=== PATIENT | female | born 1945 | race Caucasian/White ===

== ENCOUNTER 2016-06-15 04:34 | Emergency (ER) | payer MEDICARE, MEDICAID ==
[~2016-06-15] VITALS: Ht 157.5 cm; Wt 77.1 kg
[~2016-06-15 04:34] MED LIST: AMLO10TA80 PO; AMOX500T2 PO; ATEN100T PO; HYDR25TA PO; LOSA100T14 PO; METF850T2 PO; [UNRECOGNIZED DRUG - OTHER]; [UNRECOGNIZED DRUG - OTHER]
[2016-06-15] MEDS ORDERED: SODIUM CHLORIDE 0.9% 1,000 ML IV ONE (08:48)
[2016-06-15 09:06] LABS: CLARITY URINE CLEAR (CLEAR); COLOR URINE YELLOW (YELLOW); GLUCOSE URINE NEGATIVE (NEGATIVE); KETONES URINE NEGATIVE (NEGATIVE); LEUKOCYTE ESTERASE URINE 3+ (NEGATIVE); NITRITE URINE NEGATIVE (NEGATIVE); OCCULT BLOOD URINE NEGATIVE (NEGATIVE); PH URINE 6.5 (4.5-8.0); PROTEIN URINE NEGATIVE (NEGATIVE); SPECIFIC GRAVITY URINE 1.005 (1.005-1.030); UROBILINOGEN URINE 0.2 E.U./dL (0.2-1.0)
[2016-06-15 09:28] LABS: BASOPHILS % 0.5 % (0.0-2.0); EOSINOPHILS % 0.6 % (0.0-5.0); HEMOGLOBIN. 13.3 g/dL (12.0-16.0); MEAN CORPUSCULAR HEMOGLOBIN 31.1 pg (28.0-32.0); MEAN CORPUSCULAR VOLUME 89.1 fL (81.0-99.0); MEAN PLATELET VOLUME 9.6 fl (7.4-10.4); MONOCYTES % 5.2 % (2.0-8.0); NEUTROPHILS % 52.7 % (40.0-76.0); PLATELET 223 x1000/uL (130-400); RED BLOOD CELL COUNT 4.27 mill/uL (4.2-5.4); RED CELL DISTRIBUTION WIDTH 12.4 % (11.6-14.6); WHITE BLOOD COUNT 9.9 x1000/uL (4.5-11.0)
[2016-06-15 09:32] LABS: PROTHROMBIN TIME 10.7 sec
[2016-06-15 09:39] LABS: ALANINE AMINOTRANSFERASE 33 IU/L (13-61); ALBUMIN 3.8 g/dL (3.4-5.0); ANION GAP 14; CALCIUM 9.2 mg/dL (8.5-10.1); CARBON DIOXIDE 26 mEq/L (21-32); CHLORIDE 95 mEq/L (98-107); ETHANOL BLOOD < 10 mg/dL; INDEX HEMOLYSI 1 (1-3); INDEX ICTERIC 1 (1-4); INDEX LIPEMIC 1 (1-3); LIPASE 209 IU/L (73-393); TROPONIN I < 0.02 ng/mL (0.00-0.04); UREA NITROGEN BLOOD 9 mg/dL (7-21); eGFR > 60 mL/min (>60)
[2016-06-15 09:41] LABS: BACTERIA URINE 1+; RBC URINE NONE SEEN /hpf (0-2); SQUAMOUS EPITHELIAL CELL URINE FEW /lpf (RARE/1+)
[2016-06-15 09:51] LABS: *AMPHETAMINES SCREEN URINE NEGATIVE (NEGATIVE); *BARBITURATES SCREEN URINE NEGATIVE (NEGATIVE); *BENZODIAZEPINES SCREEN URINE NEGATIVE (NEGATIVE); *COCAINE SCREEN URINE NEGATIVE (NEGATIVE); CANNABINOID URINE SCREEN NEGATIVE (NEGATIVE); ECSTASY MDMA SCREEN URINE NEGATIVE (NEGATIVE); METHADONE URINE SCREEN NEGATIVE (NEGATIVE); OPIATES URINE SCREEN NEGATIVE (NEGATIVE); PHENCYCLIDINE URINE SCREEN NEGATIVE (NEGATIVE)
[2016-06-15 16:51] VITALS: BP 135/63
[2016-07-05] MEDS ORDERED: SERT50TA PO (05:40)
[2016-07-05] MEDS ORDERED: ASPI-1035 PO (10:48)
== END 2016-06-15 17:16 | disposition home or self-care (01) ==
LOC: ER 07:44
DX: N39.0 Urinary tract infection, site not specified (principal); I10 Essential (primary) hypertension; E11.9 Type 2 diabetes mellitus without complications; F41.9 Anxiety disorder, unspecified; Z88.0 Allergy status to penicillin
CPT/HCPCS: 36415; 70450; 71010; 74176; 80053; 80305; 81001; 83605; 83690; 84443; 84484; 85025; 85610; 93005; 99285; G0482; J7030

== ENCOUNTER 2016-12-19 19:29 | Emergency (ER) | payer MEDICARE, MEDICAID ==
[~2016-12-19] VITALS: Ht 165.1 cm; Wt 81.0 kg
[~2016-12-19 19:29] MED LIST changes: +ASPI-1159 PO; +SERT50TA PO
[2016-12-20] MEDS ORDERED: FAMOTIDINE 20MG/2ML VIAL IV STA (01:24)
[2016-12-20] MEDS ORDERED: ONDANSETRON 4MG ODT PO STA (01:24)
[2016-12-20] MEDS ORDERED: MAGNESIUM/ALUMINUM HYDROXIDE/SIMETHICONE 30ML UDC PO STA (01:24)
[2016-12-20] MEDS ORDERED: SODIUM CHLORIDE 0.9% 1,000 ML IV ONE (01:24)
[2016-12-20] MEDS ORDERED: ONDANSETRON HCL 4MG/2ML VIAL IV STA (01:24)
[2016-12-20 01:32] LABS: CLARITY URINE TURBID (CLEAR); COLOR URINE DARK YELLOW (YELLOW); GLUCOSE URINE NEGATIVE (NEGATIVE); KETONES URINE TRACE (NEGATIVE); LEUKOCYTE ESTERASE URINE 3+ (NEGATIVE); NITRITE URINE NEGATIVE (NEGATIVE); OCCULT BLOOD URINE 2+ (NEGATIVE); PH URINE 5.5 (4.5-8.0); PROTEIN URINE 2+ (NEGATIVE); SPECIFIC GRAVITY URINE 1.027 (1.005-1.030)
[2016-12-20 01:54] LABS: BASOPHILS % 0.6 % (0.0-2.0); HEMATOCRIT. 31.3 % (36.0-48.0); HEMOGLOBIN. 10.8 g/dL (12.0-16.0); LYMPHOCYTES % 16.5 % (20.0-50.0); MEAN CORPUSCULAR HEMOGLOBIN 30.7 pg (28.0-32.0); MEAN CORPUSCULAR VOLUME 88.5 fL (81.0-99.0); MEAN PLATELET VOLUME 9.3 fl (7.4-10.4); MONOCYTES % 9.1 % (2.0-8.0); NEUTROPHILS % 72.8 % (40.0-76.0); PLATELET 203 x1000/uL (130-400); RED BLOOD CELL COUNT 3.54 mill/uL (4.2-5.4); RED CELL DISTRIBUTION WIDTH 12.7 % (11.6-14.6)
[2016-12-20 01:56] LABS: CHLORIDE 99 mEq/L (98-107)
[2016-12-20 01:57] LABS: INR 1.1
[2016-12-20 02:04] LABS: CARBON DIOXIDE 26 mEq/L (21-32)
[2016-12-20 04:10] VITALS: BP 126/51
== END 2016-12-20 04:23 | disposition home or self-care (01) ==
LOC: ER 19:29
DX: N39.0 Urinary tract infection, site not specified (principal); R63.0 Anorexia; I10 Essential (primary) hypertension; E11.9 Type 2 diabetes mellitus without complications; Z88.0 Allergy status to penicillin; Z79.82 Long term (current) use of aspirin
CPT/HCPCS: 36415; 80053; 81001; 83690; 85025; 85610; 96361; 96374; 96375; 99284; J2405; J3490; J7030

== ENCOUNTER → 2017-03-03 | Outpatient (CLI) | payer MEDICARE, MEDICAID ==
[~2017-03-03] MED LIST changes: +REGADENOSON 0.4 MG/5 ML IV ONE
== END | disposition home or self-care (01) ==
LOC: NM 07:23
PROVIDERS: ATTEND Internal Medicine Geriatric Medicine
DX: Z01.818 Encounter for other preprocedural examination (principal); I10 Essential (primary) hypertension; E11.9 Type 2 diabetes mellitus without complications; R07.9 Chest pain, unspecified
CPT/HCPCS: 78452; 93017; A9500; J2785

== ENCOUNTER 2019-05-04 09:04 | Emergency (ER) | payer MEDICARE, MEDICAID ==
[~2019-05-04] VITALS: Ht 165.1 cm; Wt 198.0 kg
[~2019-05-04 09:04] MED LIST changes: -AMOX500T2 PO; -ASPI-1159 PO; +ASPI-1497 PO; +GLIM1TAB PO; -HYDR25TA PO; -LOSA100T14 PO; +LOSA1TAB37 PO; -METF850T2 PO; +OMEP20CA14 PO; -REGADENOSON 0.4 MG/5 ML IV ONE; -[UNRECOGNIZED DRUG - OTHER]; -[UNRECOGNIZED DRUG - OTHER]
[2019-05-04 09:45] VITALS: BP 133/68
== END 2019-05-04 12:08 | disposition home or self-care (01) ==
LOC: ER 09:04
DX: R05 Cough (principal); I10 Essential (primary) hypertension; E11.65 Type 2 diabetes mellitus with hyperglycemia; Z79.82 Long term (current) use of aspirin; Z88.0 Allergy status to penicillin
CPT/HCPCS: 71045; 82962; 99283

== ENCOUNTER 2019-05-06 23:43 | Emergency (ER) | payer MEDICARE, MEDICAID ==
[~2019-05-06] VITALS: Ht 157.5 cm; Wt 80.3 kg
[2019-05-07 07:28] VITALS: BP 172/72
[2019-05-07 07:48] LABS: EOSINOPHILS % 2.6 % (0.0-5.0); HEMOGLOBIN. 14.1 g/dL (12.0-16.0); LYMPHOCYTES % 34.9 % (20.0-50.0); MEAN CORPUSCULAR HEMOGLOBIN 30.9 pg (28.0-32.0); MONOCYTES % 7.7 % (2.0-8.0); NEUTROPHILS % 53.8 % (40.0-76.0); PLATELET 215 x1000/uL (130-400); RED BLOOD CELL COUNT 4.56 mill/uL (4.2-5.4); RED CELL DISTRIBUTION WIDTH 13.7 % (11.6-14.6)
[2019-05-07 08:00] LABS: CHLORIDE 101 mEq/L (98-107)
[2019-05-07 08:02] LABS: CLARITY URINE CLOUDY (CLEAR); COLOR URINE YELLOW (YELLOW); KETONES URINE 1+ (NEGATIVE); LEUKOCYTE ESTERASE URINE NEGATIVE (NEGATIVE); NITRITE URINE NEGATIVE (NEGATIVE); OCCULT BLOOD URINE NEGATIVE (NEGATIVE); PROTEIN URINE NEGATIVE (NEGATIVE); SPECIFIC GRAVITY URINE 1.021 (1.005-1.030); UROBILINOGEN URINE 0.2 E.U./dL (0.2-1.0)
== END 2019-05-07 10:37 | disposition home or self-care (01) ==
LOC: ER 23:43
DX: R53.1 Weakness (principal); E11.9 Type 2 diabetes mellitus without complications; F32.9 Major depressive disorder, single episode, unspecified; I10 Essential (primary) hypertension; Z90.710 Acquired absence of both cervix and uterus
CPT/HCPCS: 36415; 71045; 80053; 81003; 82962; 83880; 84484; 85025; 93005; 99284

== ENCOUNTER 2022-07-02 16:24 | Inpatient (IN) | payer MEDICARE, MEDICAID ==
[~2022-07-02] VITALS: Ht 152.4 cm; Wt 69.9 kg
[2022-07-02 17:09] LABS: BASOPHILS % 0.9 % (0.0-2.0); EOSINOPHILS % 1.4 % (0.0-5.0); HEMATOCRIT. 29.2 % (36.0-48.0); HEMOGLOBIN. 10.2 g/dL (12.0-16.0); LYMPHOCYTES % 31.8 % (20.0-50.0); MEAN CORPUSCULAR HEMOGLOBIN 30.9 pg (28.0-32.0); MEAN CORPUSCULAR VOLUME 88.8 fL (81.0-99.0); MEAN PLATELET VOLUME 8.3 fl (7.4-10.4); MONOCYTES % 6.1 % (2.0-8.0); NEUTROPHILS % 59.8 % (40.0-76.0); PLATELET 251 x1000/uL (130-400); RED BLOOD CELL COUNT 3.29 mill/uL (4.2-5.4); RED CELL DISTRIBUTION WIDTH 13.8 % (11.6-14.6)
[2022-07-02 17:17] LABS: CHLORIDE 104 mEq/L (98-107)
[2022-07-02 17:30] LABS: CLARITY URINE CLOUDY (CLEAR); COLOR URINE YELLOW (YELLOW); KETONES URINE NEGATIVE (NEGATIVE); LEUKOCYTE ESTERASE URINE 1+ (NEGATIVE); NITRITE URINE NEGATIVE (NEGATIVE); OCCULT BLOOD URINE 3+ (NEGATIVE); PH URINE 5.5 (4.5-8.0); PROTEIN URINE 3+ (NEGATIVE); SPECIFIC GRAVITY URINE 1.011 (1.005-1.030); UROBILINOGEN URINE 0.2 E.U./dL (0.2-1.0)
[2022-07-03] MEDS ORDERED: MAGNESIUM/ALUMINUM HYDROXIDE/SIMETHICONE 30ML UDC PO ONE (04:45)
[2022-07-03] MEDS ORDERED: SULFAMETHOXAZOLE/TRIMETHOPRIM 800/160MG TABLET PO ONE (04:45)
[2022-07-03] MEDS ORDERED: PANTOPRAZOLE SODIUM 40 MG/VIAL IV SCH (10:00)
[2022-07-03] MEDS ORDERED: IPRATROPIUM/ALBUTEROL 0.5-3(2.5)MG/3ML NEB HHN PRN (10:00)
[2022-07-03] MEDS ORDERED: GUAIFENESIN 200MG/10ML SUGAR FREE UDC PO PRN (10:00)
[2022-07-03] MEDS ORDERED: DEXTROSE 50% WATER 50ML SYRINGE IV PRN (10:00)
[2022-07-03] MEDS ORDERED: ACETAMINOPHEN 325MG TABLET PO PRN ×2 (10:00)
[2022-07-03] MEDS ORDERED: DOCUSATE SODIUM 100MG CAPSULE PO PRN (10:00)
[2022-07-03] MEDS ORDERED: HYDROCODONE/ACETAMINOPHEN 5/325MG TABLET PO PRN (10:00)
[2022-07-03] MEDS ORDERED: CLONIDINE 0.1MG TABLET PO PRN (10:00)
[2022-07-03] MEDS ORDERED: MAGNESIUM/ALUMINUM HYDROXIDE/SIMETHICONE 30ML UDC PO PRN (10:00)
[2022-07-03] MEDS ORDERED: ONDANSETRON HCL 4MG/2ML INJ IV PRN (10:00)
[2022-07-03] MEDS ORDERED: NALOXONE HCL 0.4MG/ML VIAL IV PRN (10:15)
[2022-07-03 10:30] LABS: BASOPHILS % 0.9 % (0.0-2.0); EOSINOPHILS % 0.6 % (0.0-5.0); HEMATOCRIT. 29.8 % (36.0-48.0); HEMOGLOBIN. 10.4 g/dL (12.0-16.0); LYMPHOCYTES % 20.3 % (20.0-50.0); MEAN CORPUSCULAR HEMOGLOBIN 30.5 pg (28.0-32.0); MEAN PLATELET VOLUME 8.4 fl (7.4-10.4); MONOCYTES % 7.7 % (2.0-8.0); NEUTROPHILS % 70.5 % (40.0-76.0); PLATELET 254 x1000/uL (130-400); RED BLOOD CELL COUNT 3.39 mill/uL (4.2-5.4); RED CELL DISTRIBUTION WIDTH 14.1 % (11.6-14.6)
[2022-07-03] MEDS ORDERED: LEVOFLOXACIN 500MG PREMIX 100 ML IV NR (11:00)
[2022-07-03 11:03] LABS: CHLORIDE 108 mEq/L (98-107)
[2022-07-03 11:11] LABS: PHOSPHORUS 3.7 mg/dL (2.5-4.9); TOTAL IRON BINDING CAPACITY 276 ug/dL (250-450)
[2022-07-03 11:59] LABS: FOLIC ACID (FOLATE) SERUM >20 ng/mL ng/mL (>5.38); VITAMIN B12 SERUM 954 pg/mL (211-911)
[2022-07-03] MEDS: SODIUM CHLORIDE 0.9% 1,000 ML IV SCH ×2 (13:14→20:37)
[2022-07-03] MEDS: BLOOD SUGAR DIAGNOSTIC STRIP TEST SCH ×2 (13:49→21:00)
[2022-07-03] MEDS: ENOXAPARIN 30MG/0.3ML SYR SUBCUT SCH (15:29)
[2022-07-03] MEDS: INSULIN LISPRO 100 UNITS/ML SUBCUT SCH ×2 (15:29→21:00)
[2022-07-03 17:00] VITALS: BP 125/56
[2022-07-03 19:44] LABS: CREATINE KINASE MB FRACTION 1.2 ng/mL (0.5-3.6)
[2022-07-03 20:00] VITALS: BP 169/62
[2022-07-03] MEDS: SUCRALFATE 1 G/10 ML UDC PO SCH (20:37)
[2022-07-03] MEDS: OMEPRAZOLE 20MG CAPSULE EXTENDED RELEASE PO SCH (20:38)
[2022-07-04] VITALS: BP 151/60
[2022-07-04 01:25] LABS: CREATINE KINASE MB FRACTION 1.2 ng/mL (0.5-3.6)
[2022-07-04 04:00] VITALS: BP 146/62
[2022-07-04 05:31] LABS: EOSINOPHILS % 2.1 % (0.0-5.0); HEMATOCRIT. 24.5 % (36.0-48.0); HEMOGLOBIN. 8.7 g/dL (12.0-16.0); LYMPHOCYTES % 33.2 % (20.0-50.0); MEAN CORPUSCULAR HEMOGLOBIN 31.3 pg (28.0-32.0); MEAN CORPUSCULAR VOLUME 88.1 fL (81.0-99.0); MEAN PLATELET VOLUME 8.9 fl (7.4-10.4); MONOCYTES % 7.7 % (2.0-8.0); PLATELET 215 x1000/uL (130-400); RED BLOOD CELL COUNT 2.78 mill/uL (4.2-5.4); RED CELL DISTRIBUTION WIDTH 13.6 % (11.6-14.6)
[2022-07-04] MEDS: SODIUM CHLORIDE 0.9% 1,000 ML IV SCH ×2 (05:45→16:39)
[2022-07-04] MEDS ORDERED: *PATIENT'S OWN MEDICATION STORAGE XX SCH (06:15)
[2022-07-04] MEDS: BLOOD SUGAR DIAGNOSTIC STRIP TEST SCH ×2 (06:53→12:59)
[2022-07-04] MEDS: SUCRALFATE 1 G/10 ML UDC PO SCH ×2 (06:56→13:17)
[2022-07-04] MEDS: OMEPRAZOLE 20MG CAPSULE EXTENDED RELEASE PO SCH (06:56)
[2022-07-04] MEDS: INSULIN LISPRO 100 UNITS/ML SUBCUT SCH ×2 (07:44→12:50)
[2022-07-04 07:48] LABS: CHLORIDE 109 mEq/L (98-107)
[2022-07-04 08:00] VITALS: BP 154/56
[2022-07-04 08:06] LABS: HDL CHOLESTEROL 35 mg/dL (40-59); LDL CHOLESTEROL 93 mg/dL (5-100)
[2022-07-04] MEDS ORDERED: LEVOFLOXACIN 250MG PREMIX 50ML IV SCH (11:00)
[2022-07-04 12:00] VITALS: BP 152/48
[2022-07-04] MEDS: ENOXAPARIN 30MG/0.3ML SYR SUBCUT SCH (12:59)
[2022-07-04] MEDS ORDERED: OMEP20CA14 PO (15:47)
[2022-07-04] MEDS ORDERED: SUCR1ORA15 PO (15:47)
[2022-07-04] MEDS ORDERED: LEVO750T68 PO (16:00)
== END 2022-07-04 17:45 | disposition home or self-care (01) | DRG 392 ==
LOC: ER 16:24 → 6EST 07-03 06:30
PROVIDERS: ADMIT Internal Medicine; ATTEND Internal Medicine
DX: K21.9 Gastro-esophageal reflux disease without esophagitis (principal); N39.0 Urinary tract infection, site not specified; N17.9 Acute kidney failure, unspecified; N18.9 Chronic kidney disease, unspecified; E11.22 Type 2 diabetes mellitus with diabetic chronic kidney disease; D63.1 Anemia in chronic kidney disease; I12.9 Hypertensive chronic kidney disease with stage 1 through stage 4 chronic kidney disease, or unspecified chronic kidney disease; Z90.710 Acquired absence of both cervix and uterus; Z79.4 Long term (current) use of insulin
CPT/HCPCS: 36415; 71045; 74176; 76700; 80053; 80061; 81003; 82378; 82550; 82553; 82607; 82746; 82962; 83036; 83540; 83550; 83735; 84100; 84439; 84443; 84484; 85025; 85044; 86677; 93005; 93970; 99285; C9113; J1650; J1956

== ENCOUNTER 2023-06-28 16:00 | Inpatient (IN) | payer MEDICARE, MEDICAID ==
[~2023-06-28] VITALS: Ht 152.4 cm; Wt 55.6 kg
[~2023-06-28 16:00] MED LIST changes: -AMLO10TA80 PO; -ASPI-1497 PO; -ATEN100T PO; +CELL2 PO; +DOCU250C14 PO; +EPOE10005 SUBCUT; +FAMO20TA8 PO; +FERR-63 PO; +HYDR100T26 PO; +LACT1CAP77 PO; +LEVO25TA7 PO; +LEVO75TA7 PO; -LOSA1TAB37 PO; +MINO2.5T19 PO; +NEPVIT PO; -OMEP20CA14 PO; +P20 PO; -SERT50TA PO
[2023-06-28 18:45] LABS: BASOPHILS % 0.2 % (0.0-2.0); EOSINOPHILS % 0.1 % (0.0-5.0); HEMOGLOBIN. 9.7 g/dL (12.0-16.0); LYMPHOCYTES % 10.5 % (20.0-50.0); MEAN CORPUSCULAR HEMOGLOBIN 31.4 pg (28.0-32.0); MEAN CORPUSCULAR HGB CONC 33.6 g/dL (31.0-37.0); MEAN CORPUSCULAR VOLUME 93.5 fL (81.0-99.0); MEAN PLATELET VOLUME 7.9 fl (7.4-10.4); MONOCYTES % 5.5 % (2.0-8.0); NEUTROPHILS % 83.7 % (40.0-76.0); PLATELET 318 x1000/uL (130-400); RED CELL DISTRIBUTION WIDTH 15.2 % (11.6-14.6); WHITE BLOOD COUNT 10.2 x1000/uL (4.5-11.0)
[2023-06-28 19:03] LABS: PROTHROMBIN TIME 11.4 sec (9.6-11.0)
[2023-06-28 19:12] LABS: ALANINE AMINOTRANSFERASE < 7 IU/L (10-49); ALBUMIN 3.8 g/dL (3.2-4.8); ASPARTATE AMINOTRANSFERASE 25 IU/L (<34); BILIRUBIN TOTAL 0.4 mg/dL (0.1-1.0); CALCIUM 9.3 mg/dL (8.7-10.4); CARBON DIOXIDE 24 mEq/L (21-32); CHLORIDE 99 mEq/L (98-107); CREATININE 2.6 mg/dL (0.6-1.0); GLUCOSE 100 mg/dL (70-105); POTASSIUM 4.4 mEq/L (3.5-5.1); SODIUM 130 mEq/L (136-145); TROPONIN I HIGH SENSITIVITY 22 ng/L (3.0-34); UREA NITROGEN BLOOD 21 mg/dL (9-23)
[2023-06-28] MEDS ORDERED: LEVOFLOXACIN 750MG PREMIX 150 ML IV ONE (23:30)
[2023-06-29] VITALS (8 sets, daily range): BP systolic 135–172; BP diastolic 56–88; PULSE 71–100; RESP 18–20; TEMP 97–98.2
[2023-06-29] MEDS: LEVOFLOXACIN 750MG PREMIX 150 ML IV NR (03:49)
[2023-06-29 04:17] LABS: CLARITY URINE CLOUDY (CLEAR); COLOR URINE DARK YELLOW (YELLOW); GLUCOSE URINE NEGATIVE (NEGATIVE); KETONES URINE TRACE (NEGATIVE); LEUKOCYTE ESTERASE URINE 1+ (NEGATIVE); NITRITE URINE NEGATIVE (NEGATIVE); OCCULT BLOOD URINE NEGATIVE (NEGATIVE); PH URINE 5.5 (4.5-8.0); PROTEIN URINE 4+ (NEGATIVE); SPECIFIC GRAVITY URINE 1.021 (1.005-1.030)
[2023-06-29 05:43] LABS: SQUAMOUS EPITHELIAL CELL URINE FEW /lpf (RARE/1+)
[2023-06-29 05:45] LABS: BACTERIA URINE NONE SEEN; RBC URINE 15-25 /hpf (0-2)
[2023-06-29] MEDS ORDERED: LEVOFLOXACIN 500MG PREMIX 100 ML IV SCH (10:00)
[2023-06-29] MEDS ORDERED: ONDANSETRON HCL 4MG/2ML INJ IV PRN (10:00)
[2023-06-29] MEDS: AMLODIPINE 10MG TABLET PO SCH (10:32)
[2023-06-29 13:12] LABS: HEPATITIS A AB IGM NEGATIVE (Negative); HEPATITIS B CORE AB IGM NEGATIVE (Negative); HEPATITIS B SURFACE ANTIGEN NEGATIVE (Negative); HEPATITIS C AB NON REACTIVE (Neg) (Negative)
[2023-06-29] MEDS: HYDRALAZINE HCL 100MG TABLET PO SCH (21:59)
[2023-06-29] MEDS: ENOXAPARIN 30MG/0.3ML SYR SUBCUT SCH (22:00)
[2023-06-29] MEDS: GUAIFENESIN-DM 200MG-20MG/10ML UDC PO PRN (22:24)
[2023-06-29] MEDS: ZOLPIDEM TARTRATE 5MG TABLET PO PRN (22:24)
[2023-06-30] VITALS (14 sets, daily range): BP systolic 132–196; BP diastolic 49–98; PULSE 65–105; RESP 13–26; TEMP 96.8–100.4
[2023-06-30 09:26] LABS: BASOPHILS % 0.2 % (0.0-2.0); EOSINOPHILS % 0.1 % (0.0-5.0); HEMATOCRIT. 25.6 % (36.0-48.0); HEMOGLOBIN. 8.5 g/dL (12.0-16.0); LYMPHOCYTES % 9.6 % (20.0-50.0); MEAN CORPUSCULAR HEMOGLOBIN 31.3 pg (28.0-32.0); MEAN CORPUSCULAR HGB CONC 33.4 g/dL (31.0-37.0); MEAN CORPUSCULAR VOLUME 93.8 fL (81.0-99.0); MEAN PLATELET VOLUME 8.6 fl (7.4-10.4); MONOCYTES % 4.6 % (2.0-8.0); NEUTROPHILS % 85.5 % (40.0-76.0); PLATELET 259 x1000/uL (130-400); RED BLOOD CELL COUNT 2.73 mill/uL (4.2-5.4); RED CELL DISTRIBUTION WIDTH 15.6 % (11.6-14.6); WHITE BLOOD COUNT 10.2 x1000/uL (4.5-11.0)
[2023-06-30] MEDS ORDERED: SODIUM CHLORIDE 10% FOR INH 15ML NEB INH NR (10:00)
[2023-06-30 10:57] LABS: FOLIC ACID (FOLATE) SERUM > 20.00 ng/mL (>5.38); VITAMIN B12 SERUM 435 pg/mL (211-911)
[2023-06-30] MEDS: MYCOPHENOLATE MOFETIL 500MG TABLET PO SCH (11:25)
[2023-06-30] MEDS: LEVOTHYROXINE SODIUM 75MCG TABLET PO NR (11:25)
[2023-06-30] MEDS: PREDNISONE 20MG TABLET PO SCH (11:26)
[2023-06-30 11:45] LABS: CALCIUM 7.3 mg/dL (8.7-10.4); CARBON DIOXIDE 18 mEq/L (21-32); CHLORIDE 107 mEq/L (98-107); CHOLESTEROL 142 mg/dL (<200); CREATININE 2.8 mg/dL (0.6-1.0); GLUCOSE 71 mg/dL (70-105); HDL CHOLESTEROL 51 mg/dL (>65); IRON 16 ug/dL (50-170); LDL CHOLESTEROL 53 mg/dL (5-100); POTASSIUM 3.9 mEq/L (3.5-5.1); SODIUM 135 mEq/L (136-145); T4 FREE 0.89 ng/dL (0.89-1.76); THYROID STIMULATING HORMONE 5.01 uIU/mL (0.55-4.78); TOTAL IRON BINDING CAPACITY 154 ug/dl (250-425); TRIGLYCERIDE 87 mg/dL (0-150); UREA NITROGEN BLOOD 33 mg/dL (9-23)
[2023-06-30] MEDS: ACETAMINOPHEN 325MG TABLET PO PRN (13:04)
[2023-06-30] MEDS: MONTELUKAST SODIUM 10MG TABLET PO SCH (16:16)
[2023-06-30] MEDS: VANCOMYCIN 1G PREMIX 200 ML IV ONE (17:23)
[2023-06-30] MEDS: GENTAMICIN SULFATE 80 MG in SODIUM CHLORIDE 0.9% 100 ML IV ONE (18:59)
[2023-06-30] MEDS: MIRTAZAPINE 15MG TABLET PO SCH (20:59)
[2023-07-01] VITALS: BP 129/53; PULSE 86; RESP 18; TEMP 97.2
[2023-07-01 04:00] VITALS: BP 149/61; PULSE 86; RESP 18; TEMP 97.9
[2023-07-01] MEDS: LEVOFLOXACIN 500 MG IV SCH (06:05)
[2023-07-01] MEDS: LEVOTHYROXINE SODIUM 75MCG TABLET PO SCH (06:05)
[2023-07-01 07:00] LABS: BASOPHILS % 0.1 % (0.0-2.0); LYMPHOCYTES % 10.8 % (20.0-50.0); MEAN CORPUSCULAR HEMOGLOBIN 31.2 pg (28.0-32.0); MEAN CORPUSCULAR HGB CONC 33.3 g/dL (31.0-37.0); MEAN CORPUSCULAR VOLUME 93.5 fL (81.0-99.0); MEAN PLATELET VOLUME 8.6 fl (7.4-10.4); NEUTROPHILS % 82.1 % (40.0-76.0); PLATELET 275 x1000/uL (130-400); RED BLOOD CELL COUNT 2.89 mill/uL (4.2-5.4); RED CELL DISTRIBUTION WIDTH 15.3 % (11.6-14.6); WHITE BLOOD COUNT 8.9 x1000/uL (4.5-11.0)
[2023-07-01 07:06] LABS: CALCIUM 8.9 mg/dL (8.7-10.4); POTASSIUM 4.6 mEq/L (3.5-5.1)
[2023-07-01 08:00] VITALS: BP 151/62; PULSE 85; RESP 13; TEMP 96.4
[2023-07-01] MEDS: FOLIC ACID/VITAMIN B COMP W-C TABLET PO SCH (08:49)
[2023-07-01 12:00] VITALS: BP_SYST 157; PULSE 89; RESP 20; TEMP 98.2
[2023-07-01 16:00] VITALS: BP 145/60; PULSE 84; RESP 16; TEMP 98
[2023-07-01] MEDS: FERROUS SULFATE 325MG TABLET PO SCH (16:25)
[2023-07-01 20:00] VITALS: BP 143/62; PULSE 85; RESP 18; TEMP 97.7
[2023-07-02] VITALS (11 sets, daily range): BP systolic 134–154; BP diastolic 54–81; PULSE 80–96; RESP 16–20; TEMP 96.6–98.8; O2SAT 98–99
[2023-07-02 06:44] LABS: EOSINOPHILS % 0.1 % (0.0-5.0); HEMATOCRIT. 26.9 % (36.0-48.0); HEMOGLOBIN. 9.1 g/dL (12.0-16.0); LYMPHOCYTES % 10.4 % (20.0-50.0); MEAN CORPUSCULAR HEMOGLOBIN 30.9 pg (28.0-32.0); MEAN CORPUSCULAR HGB CONC 33.7 g/dL (31.0-37.0); MEAN CORPUSCULAR VOLUME 91.7 fL (81.0-99.0); MEAN PLATELET VOLUME 8.5 fl (7.4-10.4); MONOCYTES % 6.7 % (2.0-8.0); NEUTROPHILS % 82.8 % (40.0-76.0); PLATELET 303 x1000/uL (130-400); RED BLOOD CELL COUNT 2.94 mill/uL (4.2-5.4); RED CELL DISTRIBUTION WIDTH 14.9 % (11.6-14.6); WHITE BLOOD COUNT 8.6 x1000/uL (4.5-11.0)
[2023-07-02 07:13] LABS: CALCIUM 8.5 mg/dL (8.7-10.4); CREATININE 3.5 mg/dL (0.6-1.0); POTASSIUM 4.9 mEq/L (3.5-5.1)
[2023-07-02] MEDS ORDERED: EMPAGLIFLOZIN 10MG TABLET PO SCH (09:00)
[2023-07-02] MEDS ORDERED: AMLODIPINE 10MG TABLET PO SCH (09:00)
[2023-07-02] MEDS: SPIRONOLACTONE 12.5MG TABLET PO SCH (10:52)
[2023-07-02] MEDS: AMLODIPINE 5MG TABLET PO SCH (10:52)
[2023-07-02] MEDS: IRON SUCROSE COMPLEX 100 MG/5 ML ML IV NR (10:59)
[2023-07-02] MEDS: FUROSEMIDE 40MG/4ML VIAL IVP SCH (10:59)
[2023-07-02] MEDS: IPRATROPIUM/ALBUTEROL 0.5-3(2.5)MG/3ML NEB HHN SCH (13:37)
[2023-07-03] VITALS (17 sets, daily range): BP systolic 102–169; BP diastolic 45–111; PULSE 84–105; RESP 16–20; TEMP 97–98.9
[2023-07-03] MEDS: EPOETIN ALFA 4000UNITS/ML VIAL SUBCUT SCH (03:21)
[2023-07-03 06:33] LABS: PROTHROMBIN TIME 11.1 sec (9.6-11.0)
[2023-07-03 07:05] LABS: LACTATE DEHYDROGENASE 279 IU/L (120-246)
[2023-07-03] MEDS ORDERED: EMPA10TA MT (10:04)
[2023-07-03] MEDS ORDERED: CELL5 PO (10:04)
[2023-07-03] MEDS ORDERED: MONT-46 PO (10:04)
[2023-07-03] MEDS ORDERED: FERR-63 PO (10:04)
[2023-07-03] MEDS ORDERED: SPIR25TA PO (10:04)
[2023-07-03] MEDS ORDERED: AMLO5TAB88 PO (10:04)
[2023-07-03] MEDS ORDERED: MIRT-89 PO (10:04)
[2023-07-03] MEDS ORDERED: FURO80TA87 MT (10:04)
[2023-07-03] MEDS ORDERED: LEVO250T74 MT (10:04)
[2023-07-03] MEDS: HYDROCODONE/ACETAMINOPHEN 5/325MG TABLET PO NR (10:28)
[2023-07-03] MEDS: LIDOCAINE 5% PATCH TOP SCH (10:28)
[2023-07-03] MEDS: LEVOFLOXACIN 250MG PREMIX 50 ML IV SCH (11:19)
[2023-07-04] MEDS ORDERED: LEVOFLOXACIN 500 MG IV SCH (11:00)
[2023-07-06] MEDS ORDERED: METO5TAB7 (15:01)
[2023-07-06] MEDS ORDERED: LEVO250T74 PO (15:01)
[2023-07-06] MEDS ORDERED: ONDA4TAB50 PO (15:01)
[2023-07-06] MEDS ORDERED: SERT-422 PO (15:01)
[2023-07-06] MEDS ORDERED: GLIM2TAB30 (15:01)
[2023-07-06] MEDS ORDERED: MINO2.5T19 PO (15:03)
[2023-07-06] MEDS ORDERED: MYCO500T PO (15:04)
[2023-07-06] MEDS ORDERED: NIFE90TA60 (15:05)
== END 2023-07-03 16:22 | disposition home or self-care (01) | DRG 193 ==
LOC: ER 16:30 → 7EST 06-29 02:07
PROVIDERS: ADMIT Internal Medicine Geriatric Medicine; ATTEND Internal Medicine Geriatric Medicine
PROC: 5A1D70Z Performance of Urinary Filtration, Intermittent, Less than 6 Hours Per Day (ICD-10-PCS; 2023-06-29)
PROC: 5A1D70Z Performance of Urinary Filtration, Intermittent, Less than 6 Hours Per Day (ICD-10-PCS; 2023-06-30)
PROC: 5A1D70Z Performance of Urinary Filtration, Intermittent, Less than 6 Hours Per Day (ICD-10-PCS; 2023-07-02)
PROC: 0W9B3ZZ Drainage of Left Pleural Cavity, Percutaneous Approach (ICD-10-PCS; principal; 2023-07-03)
PROC: 5A1D70Z Performance of Urinary Filtration, Intermittent, Less than 6 Hours Per Day (ICD-10-PCS; 2023-07-03)
DX: J15.9 Unspecified bacterial pneumonia (principal); N18.6 End stage renal disease; E87.1 Hypo-osmolality and hyponatremia; I13.2 Hypertensive heart and chronic kidney disease with heart failure and with stage 5 chronic kidney disease, or end stage renal disease; N39.0 Urinary tract infection, site not specified; E46 Unspecified protein-calorie malnutrition; I31.39 Other pericardial effusion (noninflammatory); I42.9 Cardiomyopathy, unspecified; I50.42 Chronic combined systolic (congestive) and diastolic (congestive) heart failure; J90 Pleural effusion, not elsewhere classified; E87.20 Acidosis, unspecified; E11.22 Type 2 diabetes mellitus with diabetic chronic kidney disease; E03.9 Hypothyroidism, unspecified; E87.70 Fluid overload, unspecified; T50.2X5A Adverse effect of carbonic-anhydrase inhibitors, benzothiadiazides and other diuretics, initial encounter; F41.9 Anxiety disorder, unspecified; F32.A Depression, unspecified; D50.9 Iron deficiency anemia, unspecified; E78.5 Hyperlipidemia, unspecified; Z20.822 Contact with and (suspected) exposure to COVID-19; E87.5 Hyperkalemia; Z79.624 Long term (current) use of inhibitors of nucleotide synthesis; Z79.84 Long term (current) use of oral hypoglycemic drugs; Z79.899 Other long term (current) drug therapy; Z88.0 Allergy status to penicillin; Z90.710 Acquired absence of both cervix and uterus; Z99.2 Dependence on renal dialysis; X58.XXXA Exposure to other specified factors, initial encounter; Y93.89 Activity, other specified; Y92.89 Other specified places as the place of occurrence of the external cause; Y99.8 Other external cause status; Z68.23 Body mass index [BMI] 23.0-23.9, adult
CPT/HCPCS: 32555; 36415; 71045; 76604; 80048; 80053; 80061; 81003; 82607; 82746; 82962; 83036; 83540; 83550; 83615; 83880; 84145; 84439; 84443; 84484; 85025; 86038; 86705; 86709; 87340; 87426; 88108; 90935; 93005; 93306; 93970; 94640; 97116; 97162; 99285; J0885; J1580; J1650; J1940; J1956; J3370; J7050; J7131; J7512; J7517

== ENCOUNTER → 2023-10-20 | Outpatient (CLI) | payer MEDICARE, MEDICAID ==
[~2023-10-20] MED LIST changes: +AMLO5TAB88 PO; -CELL2 PO; +CELL5 PO; +CHOL500051 ORI; +EMPA10TA MT; -EPOE10005 SUBCUT; +FURO40TA5 PO; +FURO80TA87 MT; -GLIM1TAB PO; +LEVO250T74 PO; -LEVO75TA7 PO; +METO5TAB7; +METO5TAB7 PO; +MIRT-89 PO; +MYCO500T PO; -NEPVIT PO; +ONDA4TAB50 PO; -P20 PO; +PANT40TA51 PO
== END | disposition home or self-care (01) ==
LOC: MAMMO 13:52
PROVIDERS: ATTEND Internal Medicine Geriatric Medicine
DX: Z12.31 Encounter for screening mammogram for malignant neoplasm of breast (principal); R92.323 Mammographic fibroglandular density, bilateral breasts; R92.1 Mammographic calcification found on diagnostic imaging of breast
CPT/HCPCS: 77063; 77067

== ENCOUNTER 2023-12-15 08:21 | Inpatient (IN) | payer MEDICARE, MEDICAID ==
[2023-12-15] VITALS (18 sets, daily range): BP systolic 100–128; BP diastolic 42–59; PULSE 92–104; RESP 26–38; TEMP 36.3918–37.33632; O2SAT 90–95
[~2023-12-15] VITALS: Ht 152.4 cm; Wt 62.6 kg
[~2023-12-15 08:21] MED LIST changes: +ASCO100T12 MT; +DIPH-1091 PO; -FAMO20TA8 PO; -FERR-63 PO; -FURO80TA87 MT; -HYDR100T26 PO; -LACT1CAP77 PO; -LEVO250T74 PO; -LEVO25TA7 PO; +LEVO50TA8 PO; +LEVO75CA5 PO; +MECL-299 PO; -METO5TAB7; +MIRT-144 PO; -MIRT-89 PO; -MYCO500T PO
[2023-12-15 09:36] LABS: HEMATOCRIT. 32.2 % (36.0-48.0); MEAN CORPUSCULAR HEMOGLOBIN 31.4 pg (28.0-32.0); MEAN CORPUSCULAR HGB CONC 31.1 g/dL (31.0-37.0); MEAN CORPUSCULAR VOLUME 100.9 fL (81.0-99.0); MEAN PLATELET VOLUME 9.7 fl (7.4-10.4); PLATELET 232 x1000/uL (130-400); RED BLOOD CELL COUNT 3.19 mill/uL (4.2-5.4); WHITE BLOOD COUNT 20.3 x1000/uL (4.5-11.0)
[2023-12-15 09:40] LABS: CHLORIDE 98 mEq/L (98-107); POTASSIUM 5.8 mEq/L (3.5-5.1); SODIUM 128 mEq/L (136-145)
[2023-12-15 09:41] LABS: CARBON DIOXIDE 22 mEq/L (21-32)
[2023-12-15 09:42] LABS: CALCIUM 9.8 mg/dL (8.7-10.4)
[2023-12-15 09:44] LABS: DIFFERENTIAL COMMENT 1
[2023-12-15 09:47] LABS: GLUCOSE 92 mg/dL (70-105)
[2023-12-15 09:48] LABS: ALANINE AMINOTRANSFERASE 12 IU/L (10-49); ALBUMIN 3.9 g/dL (3.2-4.8); ASPARTATE AMINOTRANSFERASE 58 IU/L (<34); UREA NITROGEN BLOOD 35 mg/dL (9-23)
[2023-12-15 09:49] LABS: BILIRUBIN DIRECT 0.3 mg/dL (<=3.0); BILIRUBIN TOTAL 0.4 mg/dL (0.1-1.0)
[2023-12-15 10:07] LABS: INR 1.2; PROTHROMBIN TIME 13.1 sec (9.6-11.0)
[2023-12-15] MEDS: LACTATED RINGERS 500 ML IV SCH (10:08)
[2023-12-15 10:18] LABS: CREATININE 4.5 mg/dL (0.6-1.0)
[2023-12-15 10:19] LABS: PROTEIN TOTAL 9.6 g/dL (6.0-8.3)
[2023-12-15 10:21] LABS: TROPONIN I HIGH SENSITIVITY 46 ng/L (3.0-34)
[2023-12-15] MEDS: CEFTRIAXONE 1GM/50ML 50 ML IV ONE (10:36)
[2023-12-15] MEDS: AZITHROMYCIN 500MG/250ML 250 ML IV SCH (11:20)
[2023-12-15 11:29] LABS: POTASSIUM 5.4 mEq/L (3.5-5.1)
[2023-12-15 11:30] LABS: CALCIUM 9.2 mg/dL (8.7-10.4)
[2023-12-15 11:35] LABS: CREATININE 4.6 mg/dL (0.6-1.0)
[2023-12-15 11:48] LABS: HEPATITIS A AB IGM NEGATIVE (Negative); HEPATITIS B CORE AB IGM NEGATIVE (Negative); HEPATITIS C AB NON REACTIVE (Neg) (Negative)
[2023-12-15 11:54] LABS: HEPATITIS B SURFACE ANTIGEN REACTIVE PEND CONFIR (Negative)
[2023-12-15 12:08] LABS: TROPONIN I HIGH SENSITIVITY 64 ng/L (3.0-34)
[2023-12-15 13:13] LABS: PLATELET ESTIMATE NORMAL
[2023-12-15 13:14] LABS: ANISOCYTOSIS 2+
[2023-12-15] MEDS ORDERED: ACETAMINOPHEN 325MG TABLET PO PRN (13:45)
[2023-12-15] MEDS ORDERED: ZOLPIDEM TARTRATE 5MG TABLET PO PRN (13:45)
[2023-12-15] MEDS ORDERED: CLONIDINE 0.1MG TABLET PO PRN (13:45)
[2023-12-15] MEDS ORDERED: ONDANSETRON HCL 4MG/2ML INJ IV PRN (13:45)
[2023-12-15] MEDS ORDERED: MAGNESIUM/ALUMINUM HYDROXIDE/SIMETHICONE 30ML UDC PO PRN (13:45)
[2023-12-15] MEDS ORDERED: AZITHROMYCIN 250 MG in DEXT 5% WATER 250 ML IV SCH (14:15)
[2023-12-15] MEDS: FUROSEMIDE 40MG/4ML VIAL IVP NR ×3 (14:42→21:58)
[2023-12-15] MEDS: HYDRALAZINE HCL 100MG TABLET PO SCH (14:44)
[2023-12-15] MEDS: ENOXAPARIN 30MG/0.3ML SYR SUBCUT SCH (15:38)
[2023-12-15] MEDS: IPRATROPIUM/ALBUTEROL 0.5-3(2.5)MG/3ML NEB HHN PRN (18:09)
[2023-12-15] MEDS: DEXTROSE 50% WATER 50ML SYRINGE IV ONE (18:59)
[2023-12-15] MEDS: VANCOMYCIN 1G PREMIX 200 ML IV SCH (19:03)
[2023-12-15 19:15] LABS: T4 FREE 0.89 ng/dL (0.89-1.76)
[2023-12-15 19:16] LABS: THYROID STIMULATING HORMONE 12.98 uIU/mL (0.55-4.78)
[2023-12-15] MEDS: MIRTAZAPINE 15MG TABLET PO SCH (21:00)
[2023-12-15] MEDS: MYCOPHENOLATE MOFETIL 500MG TABLET PO SCH (21:00)
[2023-12-15] MEDS ORDERED: PIPERACILLIN/TAZO 3.375G/50ML 50 ML IV SCH (21:00)
[2023-12-15 22:01] LABS: BG BASE EXCESS -3.3 mmol/L (-2.0-3.0); BG CARBOXYHEMOGLOBIN 0.8 % (0.5-1.5); BG FRACTION INSPIRED OXYGEN 100; BG HCO3 ACT 24.9 mmol/L (21.0-28.0); BG METHEMOGLOBIN 0.1 % (0.5-1.5); BG OXYGEN SATURATION 89.9 % (94.0-98.0); BG OXYHEMOGLOBIN 89.1 % (94.0-98.0); BG PCO2 62.1 mmHg (32.0-45.0); BG PH 7.221 (7.350-7.450); BG PO2 68.8 mmHg (83.0-108.0); BG SAMPLE SITE RIGHT BRACHIAL; BG TOTAL HEMOGLOBIN 9.9 g/dL (12.0-16.0); BG TOTAL RESPIRATORY RATE 14 b/min; BG VENT MODE MASK - CPAP
[2023-12-15] MEDS: CEFEPIME 1GM/50ML 50 ML IV SCH (22:53)
[2023-12-16] VITALS (80 sets, daily range): BP systolic 83–153; BP diastolic 35–88; PULSE 94–113; RESP 11–32; TEMP 36.44736–37.2252; O2SAT 89–100
[2023-12-16] MEDS: DEXT 5%/0.9% NACL 1,000 ML IV SCH (00:02)
[2023-12-16] MEDS: SODIUM BICARBONATE 8.4% 50MEQ/50ML SYR IV NR (00:02)
[2023-12-16] MEDS: LEVOTHYROXINE SODIUM 100 MCG/ VIAL IV SCH (00:23)
[2023-12-16] MEDS: IPRATROPIUM/ALBUTEROL 0.5-3(2.5)MG/3ML NEB HHN SCH (00:32)
[2023-12-16 00:48] LABS: TROPONIN I HIGH SENSITIVITY 77 ng/L (3.0-34)
[2023-12-16 01:02] LABS: BG BASE EXCESS -1.9 mmol/L (-2.0-3.0); BG DEOXYHEMOGLOBIN 5.5 % (0.0-5.0); BG FRACTION INSPIRED OXYGEN 100; BG HCO3 ACT 25.5 mmol/L (21.0-28.0); BG METHEMOGLOBIN 0.1 % (0.5-1.5); BG OXYGEN SATURATION 94.4 % (94.0-98.0); BG OXYHEMOGLOBIN 93.4 % (94.0-98.0); BG PCO2 56.1 mmHg (32.0-45.0); BG PH 7.275 (7.350-7.450); BG PO2 79.2 mmHg (83.0-108.0); BG SAMPLE SITE RIGHT BRACHIAL; BG TOTAL HEMOGLOBIN 11.1 g/dL (12.0-16.0)
[2023-12-16] MEDS: DEXTROSE 50% WATER 50ML SYRINGE IV PRN (02:05)
[2023-12-16 05:39] LABS: HEMATOCRIT. 30.8 % (36.0-48.0); HEMOGLOBIN. 9.4 g/dL (12.0-16.0); MEAN CORPUSCULAR HEMOGLOBIN 32.5 pg (28.0-32.0); MEAN CORPUSCULAR HGB CONC 30.7 g/dL (31.0-37.0); MEAN CORPUSCULAR VOLUME 105.8 fL (81.0-99.0); PLATELET 136 x1000/uL (130-400); RED BLOOD CELL COUNT 2.91 mill/uL (4.2-5.4); RED CELL DISTRIBUTION WIDTH 19.3 % (11.6-14.6); WHITE BLOOD COUNT 8.3 x1000/uL (4.5-11.0)
[2023-12-16 05:40] LABS: LACTATE DEHYDROGENASE 288 IU/L (120-246)
[2023-12-16 05:45] LABS: DIFFERENTIAL COMMENT 1
[2023-12-16 06:05] LABS: TROPONIN I HIGH SENSITIVITY 93 ng/L (3.0-34)
[2023-12-16] MEDS: INSULIN LISPRO 100 UNITS/ML SUBCUT SCH (06:39)
[2023-12-16] MEDS: BLOOD SUGAR DIAGNOSTIC STRIP TEST SCH (06:39)
[2023-12-16 06:41] LABS: BG BASE EXCESS -1.2 mmol/L (-2.0-3.0); BG CARBOXYHEMOGLOBIN 0.9 % (0.5-1.5); BG DEOXYHEMOGLOBIN 1.3 % (0.0-5.0); BG FRACTION INSPIRED OXYGEN 100; BG HCO3 ACT 25.9 mmol/L (21.0-28.0); BG METHEMOGLOBIN 0.2 % (0.5-1.5); BG OXYGEN SATURATION 98.7 % (94.0-98.0); BG OXYHEMOGLOBIN 97.6 % (94.0-98.0); BG PH 7.283 (7.350-7.450); BG SAMPLE SITE RIGHT RADIAL; BG TOTAL HEMOGLOBIN 9.6 g/dL (12.0-16.0); BG VENT MODE MASK - BIPAP
[2023-12-16] MEDS: LORAZEPAM 2MG/ML INJ IV NR (06:52)
[2023-12-16] MEDS ORDERED: LEVOTHYROXINE SODIUM 75MCG TABLET PO SCH (07:30)
[2023-12-16] MEDS: NOREPINEPHRINE 32 MG in DEXT 5% WATER 218 ML IV PRN (07:46)
[2023-12-16 08:47] LABS: POTASSIUM 3.8 mEq/L (3.5-5.1)
[2023-12-16 08:49] LABS: CALCIUM 8.9 mg/dL (8.7-10.4)
[2023-12-16] MEDS: DOCUSATE SODIUM 250MG CAPSULE PO SCH (09:00)
[2023-12-16] MEDS ORDERED: FUROSEMIDE 40MG/4ML VIAL IVP SCH (09:00)
[2023-12-16] MEDS ORDERED: AMLODIPINE 2.5MG TABLET PO SCH (09:00)
[2023-12-16] MEDS ORDERED: CEFTRIAXONE 1GM/50ML 50 ML IV SCH (10:00)
[2023-12-16 10:38] LABS: ANISOCYTOSIS 2+; PLATELET ESTIMATE SLIGHTLY DECREASED
[2023-12-16] MEDS: SODIUM CHLORIDE 23.4% 154 MEQ in DEXT 10% WATER 1,000 ML IV SCH (12:00)
[2023-12-16] MEDS: LIDOCAINE HCL 1% 10 MG/ML 10ML VIAL ONE (13:08)
[2023-12-16] MEDS: AZITHROMYCIN 500MG/250ML 250 ML IV SCH (13:32)
[2023-12-16] MEDS: PANTOPRAZOLE 40MG DR TABLET PO SCH (16:24)
[2023-12-17] VITALS (83 sets, daily range): BP systolic 94–170; BP diastolic 45–114; PULSE 95–116; RESP 14–38; TEMP 36.89184–37.2252; O2SAT 89–100
[2023-12-17 05:32] LABS: POTASSIUM 4.7 mEq/L (3.5-5.1)
[2023-12-17 05:34] LABS: CALCIUM 9.4 mg/dL (8.7-10.4)
[2023-12-17 05:38] LABS: CREATININE 3.3 mg/dL (0.6-1.0)
[2023-12-17 05:55] LABS: HEMATOCRIT. 27.3 % (36.0-48.0); HEMOGLOBIN. 8.2 g/dL (12.0-16.0); MEAN CORPUSCULAR HEMOGLOBIN 31.5 pg (28.0-32.0); MEAN CORPUSCULAR VOLUME 105.2 fL (81.0-99.0); MEAN PLATELET VOLUME 11.4 fl (7.4-10.4); PLATELET 127 x1000/uL (130-400); RED CELL DISTRIBUTION WIDTH 19.1 % (11.6-14.6); WHITE BLOOD COUNT 11.7 x1000/uL (4.5-11.0)
[2023-12-17 06:19] LABS: DIFFERENTIAL COMMENT 1
[2023-12-17 09:31] LABS: BG CARBOXYHEMOGLOBIN 1.7 % (0.5-1.5); BG DEOXYHEMOGLOBIN 0.7 % (0.0-5.0); BG FRACTION INSPIRED OXYGEN 85; BG HCO3 ACT 25.3 mmol/L (21.0-28.0); BG METHEMOGLOBIN 0.2 % (0.5-1.5); BG OXYGEN SATURATION 99.3 % (94.0-98.0); BG OXYHEMOGLOBIN 97.4 % (94.0-98.0); BG PCO2 44.3 mmHg (32.0-45.0); BG PH 7.374 (7.350-7.450); BG PO2 137.7 mmHg (83.0-108.0); BG SAMPLE SITE LEFT BRACHIAL; BG TOTAL HEMOGLOBIN 7.7 g/dL (12.0-16.0); BG VENT MODE MASK - SIMPLE
[2023-12-17] MEDS: LORAZEPAM 2MG/ML INJ IV NR (10:39)
[2023-12-17] MEDS ORDERED: DILTIAZEM HCL 5MG/ML 5ML VIAL IV PRN (11:15)
[2023-12-17] MEDS ORDERED: CEFEPIME 2GM/100ML 100 ML IV SCH (12:00)
[2023-12-17] MEDS: CEFEPIME 1GM/50ML 50 ML IV SCH (12:35)
[2023-12-17] MEDS: METOPROLOL TARTRATE 25MG TABLET PO SCH (12:52)
[2023-12-17] MEDS: METRONIDAZOLE 500MG TABLET PO SCH (17:20)
[2023-12-17] MEDS: VANCOMYCIN 1GM/200ML PMX (BAXTER) IV NR (17:20)
[2023-12-17 17:42] LABS: PLATELET ESTIMATE DECREASED
[2023-12-17] MEDS: MYCOPHENOLATE MOFETIL 200MG/ML ORAL SUSP NG SCH (20:57)
[2023-12-17] MEDS ORDERED: MYCOPHENOLATE MOFETIL 200MG/ML ORAL SUSP PO SCH (21:00)
[2023-12-18] VITALS (14 sets, daily range): BP systolic 44–121; BP diastolic 28–79; PULSE 0–98; RESP 0–34; TEMP 36.78072–37.28076; O2SAT 86–95
[2023-12-18] MEDS: INSULIN LISPRO 100 UNITS/ML SUBCUT SCH
[2023-12-18 06:07] LABS: HEMATOCRIT. 26.8 % (36.0-48.0); HEMOGLOBIN. 8.1 g/dL (12.0-16.0); MEAN CORPUSCULAR HEMOGLOBIN 31.9 pg (28.0-32.0); MEAN CORPUSCULAR VOLUME 106.1 fL (81.0-99.0); MEAN PLATELET VOLUME 11.2 fl (7.4-10.4); PLATELET 111 x1000/uL (130-400); RED BLOOD CELL COUNT 2.53 mill/uL (4.2-5.4); RED CELL DISTRIBUTION WIDTH 19.5 % (11.6-14.6); WHITE BLOOD COUNT 6.2 x1000/uL (4.5-11.0)
[2023-12-18 06:29] LABS: DIFFERENTIAL COMMENT 1
[2023-12-18] MEDS ORDERED: LANSOPRAZOLE 30MG DR CAPSULE GT SCH (06:30)
[2023-12-18] MEDS ORDERED: AZITHROMYCIN 250 MG TABLET PO SCH (09:00)
[2023-12-19 15:59] LABS: NUCLEATED RED BLOOD CELLS 1 /100 WBC
[2023-12-19 16:00] LABS: ANISOCYTOSIS 2+; PLATELET ESTIMATE DECREASED
[2023-12-20 06:11] LABS: QFT MITOGEN VALUE 0.01 IU/mL (.); QFT TB GOLD PLUS Indeterminate (Negative); QFT TB1 AG VALUE 0.01 IU/mL (.); QFT TB2 AG VALUE 0.01 IU/mL (.)
== END 2023-12-18 09:49 | DRG 871 ==
LOC: ER 08:21 → 5EST 11:01 → EDBEDREQTM 11:17 → EDBEDREQ 11:17 → MICUNO 12-16 03:15
PROVIDERS: ADMIT Internal Medicine Geriatric Medicine; ATTEND Internal Medicine Geriatric Medicine
PROC: 5A09457 Assistance with Respiratory Ventilation, 24-96 Consecutive Hours, Continuous Positive Airway Pressure (ICD-10-PCS; principal; 2023-12-15)
PROC: 5A1D70Z Performance of Urinary Filtration, Intermittent, Less than 6 Hours Per Day (ICD-10-PCS; 2023-12-15)
PROC: 5A1D70Z Performance of Urinary Filtration, Intermittent, Less than 6 Hours Per Day (ICD-10-PCS; 2023-12-16)
PROC: 02HV33Z Insertion of Infusion Device into Superior Vena Cava, Percutaneous Approach (ICD-10-PCS; 2023-12-17)
PROC: B548ZZA Ultrasonography of Superior Vena Cava, Guidance (ICD-10-PCS; 2023-12-17)
PROC: 0JPV3XZ Removal of Tunneled Vascular Access Device from Upper Extremity Subcutaneous Tissue and Fascia, Percutaneous Approach (ICD-10-PCS; 2023-12-17)
DX: A41.51 Sepsis due to Escherichia coli [E. coli] (principal); G93.41 Metabolic encephalopathy; J18.9 Pneumonia, unspecified organism; J96.21 Acute and chronic respiratory failure with hypoxia; N18.6 End stage renal disease; R65.21 Severe sepsis with septic shock; J96.22 Acute and chronic respiratory failure with hypercapnia; I50.23 Acute on chronic systolic (congestive) heart failure; J81.0 Acute pulmonary edema; I13.2 Hypertensive heart and chronic kidney disease with heart failure and with stage 5 chronic kidney disease, or end stage renal disease; E87.1 Hypo-osmolality and hyponatremia; I95.9 Hypotension, unspecified; E87.5 Hyperkalemia; E11.22 Type 2 diabetes mellitus with diabetic chronic kidney disease; E03.9 Hypothyroidism, unspecified; K21.9 Gastro-esophageal reflux disease without esophagitis; Z20.822 Contact with and (suspected) exposure to COVID-19; E78.5 Hyperlipidemia, unspecified; I25.10 Atherosclerotic heart disease of native coronary artery without angina pectoris; F32.9 Major depressive disorder, single episode, unspecified; D63.1 Anemia in chronic kidney disease; D69.6 Thrombocytopenia, unspecified; E11.649 Type 2 diabetes mellitus with hypoglycemia without coma; E63.9 Nutritional deficiency, unspecified; F41.1 Generalized anxiety disorder; I46.9 Cardiac arrest, cause unspecified; Z66 Do not resuscitate; Z79.84 Long term (current) use of oral hypoglycemic drugs; Z79.899 Other long term (current) drug therapy; Z88.0 Allergy status to penicillin; Z90.710 Acquired absence of both cervix and uterus; Z99.2 Dependence on renal dialysis; Z99.81 Dependence on supplemental oxygen
CPT/HCPCS: 36415; 36556; 36589; 36600; 71045; 76937; 80048; 80076; 80202; 82375; 82805; 82962; 83036; 83605; 83615; 83880; 84145; 84439; 84443; 84484; 85025; 86480; 86635; 86705; 86709; 87070; 87077; 87186; 87305; 87340; 87426; 87899; 90935; 93005; 93306; 93970; 94003; 94640; 94660; 99291; C1752; J0456; J0692; J0696; J1650; J1940; J2060; J3370; J3490; J7060; J7131; J7517